=== PATIENT | male | born 1965 | race Caucasian/White ===

== ENCOUNTER 2016-07-15 11:42 | Day surgery (SDC) | payer OTHER ==
[~2016-07-15 11:42] MED LIST: Z.0.NO CURRENT MEDS
[2016-07-15] MEDS ORDERED: INSULIN HUMAN REGULAR 1,000 UNITS/10 ML VIAL SQ PRN (12:15)
[2016-07-15] MEDS ORDERED: SODIUM CHLORID 0.9% 500 ML IV SCH (12:15)
[2016-07-15] MEDS ORDERED: METOPROLOL TARTRATE 25 MG TAB PO PRN (12:15)
[2016-07-15] MEDS ORDERED: LACTATED RINGER'S 1000 ML IV SCH (12:15)
[2016-07-15] MEDS ORDERED: MULT-65 PO (13:05)
[2016-07-15] MEDS ORDERED: MIDAZOLAM HCL 2 MG/2 ML VIAL ONE (14:08)
--- NOTE | 2016-07-15 15:36 | EKG ---
Date Performed: 07/15/2016 Time Performed: 13:40:30 PTAGE: 50 years EKG: Sinus bradycardia with borderline 1st degree A-V block Poor R wave progression - probable n ormal variant Inferior and anterior T wave changes are nonspecific Borderline ECG NO PREVIOUS TRACING DOCTOR: Michael Roman Interpretating Date/Time 07/15/2016 15:34:53
--- NOTE | 2016-07-20 11:00 | CF ---
cc: KATRINA RIVERA M.D., JAVIER M.D. PROCEDURE PERFORMED Transesophageal echo. INDICATION Episodes of aphasia and loss of vision lasting 15 minutes, rule out TIA due to PFO/ASD/wdabn-bh-exsg shunting. CONSENT Full informed consent was obtained prior to the procedure. The risk of perforation, aspiration, foreseen and unforeseen complications were reviewed. The patient fully appeared to understand the risk. PROCEDURAL STATEMENT The patient was prepped and draped in the usual manner. The patient received anesthesia as per the anesthesia department. A full GABBY was performed. FINDINGS The aortic valve was mildly thickened and there was some mild aortic regurgitation. Mitral valve moved normally. Intraventricular septum was intact. Intra-apical septum was intact. Tricuspid valve moved normally. Bubble studies x 2 with dense bubbles noted on the right side, showed no evidence of bsgtq-[id number]-[id number] shunting. The left atrial appendage was free of thrombus. The aorta had mild plaquing. CONCLUSION No evidence of qwrnd-kc-rxtn shunting. No obvious thromboembolic source seen. The cause of the patient's symptoms is uncertain.Negative bubble study X2. Katrina Rivera MD, FRCP,[facility] /2:30 PM /9:27 AM [place]
== END 2016-07-15 14:52 | disposition home or self-care (01) ==
LOC: HDIC 11:42 → HDOC 11:42
PROVIDERS: ATTEND Internal Medicine Cardiovascular Disease
DX: Q21.1 Atrial septal defect (principal)
CPT/HCPCS: 01922; 93005; 93312; 93320; 93325; J2250; J3010